=== PATIENT | male | born 1950 | race Caucasian/White ===

== ENCOUNTER 2018-11-27 19:09 | Emergency (ER) | payer MEDICARE ==
[2018-11-27 19:26] LABS: #Basophils 0.1 thou/uL (0.0-0.2); #Eosinphils 0.2 thou/uL (0.0-0.7); #Monocytes 0.9 thou/uL (0.11-0.59); #Neutrophils 8.1 thou/uL (1.40-6.50); %Basophils 0.7 % (0.0-1.0); %Eosinophils 1.8 % (0.0-10.0); %Lymphocytes 24.1 % (21.0-51.0); %Monocytes 7.6 % (0.0-10.0); %Neutrophils 65.8 % (42.0-75.0); Hemoglobin 10.7 g/dL (14.0-18.0); Mean Corpuscular HGB CONC 30.3 g/dL (32.0-36.0); Mean Corpuscular Hemoglobin 29.3 pg (27.0-31.0); Mean Corpuscular Volume 96.4 fL (78.0-98.0); Mean Platelet Volume 6.5 fL (7.4-10.4); Platelet Count 226 thou/uL (130-400); RBC Distribution Width 15.8 % (11.5-14.5); Red Blood Cell (RBC) Count 3.65 mill/uL (4.70-6.10); White Blood Cell (WBC) Count 12.3 thou/uL (4.8-10.8)
[2018-11-27] MEDS ORDERED: Morphine 4 MG/ML VIAL ONE (19:26)
[2018-11-27] MEDS ORDERED: Ondansetron PF 4 MG/2 ML Vial ONE (19:26)
[2018-11-27] MEDS ORDERED: Diltiazem 125 MG/25 ML ONE (19:35)
--- NOTE | 2018-11-27 19:41 | RAD ---
Exam: Chest one view HISTORY:Pain Comparison: None FINDINGS: Cardiac silhouette: Cardiomegaly. There are sternotomy wires. Pulmonary vessels: Prominent Costophrenic angles: Limited evaluation. No large effusion. LUNGS: Patchy interstitial opacities. Focal opacity in the left lower lobe. Pneumothorax: None Osseous abnormalities: Interval evaluated fusion hardware in the lower thoracic spine. IMPRESSION: 1. Cardiomegaly. Pulmonary vascular prominence. Possible volume overload. 2. Hypodensity in the left lung base may represent edema, pneumonia or aspiration. Continued surveill ance.
[2018-11-27 19:49] LABS: ALT (SGPT) 10 U/L (8-55); AST (SGOT) 21 U/L (5-34); Alkaline Phosphatase 108 U/L (40-150); Anion Gap 21 mmol/L (10-20); BUN (Urea Nitrogen) 29 mg/dL (8.4-25.7); Bilirubin, Total 0.8 mg/dL (0.2-1.2); CK (CPK) 90 U/L (30-200); Calc. Creatinine Clearance 0 mL/min (70-130); Calcium 9.7 mg/dL (7.8-10.44); Carbon Dioxide 23 mmol/L (23-31); Chloride 101 mmol/L (98-107); Estimated GFR-MDRD 45; Globulin 4.3 g/dL (2.4-3.5); Glucose 144 mg/dL (80-115); Lipase 12 U/L (8-78); Potassium 4.1 mmol/L (3.5-5.1); Protein, Total 8.3 g/dL (5.8-8.1); Sodium 141 mmol/L (136-145)
[2018-11-27] MEDS ORDERED: Aspirin Chewable 81 MG TAB ONE (20:12)
[2018-11-27] MEDS ORDERED: Heparin 25,000 units/D5W 500 ML ONE (20:18)
[2018-11-27] MEDS ORDERED: Heparin 10,000 UNITS/1 ML VIAL ONE (20:18)
== END 2018-11-27 19:45 | disposition short-term general hospital (02) ==
LOC: NAV ERS 19:09
DX: I21.3 ST elevation (STEMI) myocardial infarction of unspecified site (principal); I48.91 Unspecified atrial fibrillation
CPT/HCPCS: 71045; 80053; 82550; 83605; 83690; 84484; 85025; 93005; 96374; 96375; J1644; J2270; J2405